=== PATIENT | female | born 1970 | race Two or more races ===

== ENCOUNTER 2018-08-27 07:48 | Outpatient (CLI) | payer OTHER | END 2018-08-27 08:08 | disposition home or self-care (01) | LOC: MRI 07:48 | DX: R94.5 Abnormal results of liver function studies (principal) | CPT/HCPCS: 74181 ==

== ENCOUNTER 2019-01-10 07:35 | Inpatient (IN) | payer OTHER ==
[~2019-01-10 07:35] MED LIST: CLONAZEPAM1 M1 PO; DYMISTA; TRAZODONE HCL50 MG PO; ZANTAC300 MG PO; ZOLOFT50 MG PO
[2019-01-11] MEDS ORDERED: DYMISTA NASAL S23 GM NASAL (08:29)
[2019-01-14] MEDS ORDERED: KETO10TA2 PO (08:59)
[2019-01-14] MEDS ORDERED: PHENERGAN25 MG PO (08:59)
== END 2019-01-14 10:59 | DRG 743 ==
LOC: CIR.AMB 07:35 → OB/GYN 14:38 → O/R 14:38 → OB/GYN 15:30 → CIR.AMB 18:15 → OB/GYN 01-14 10:59
PROVIDERS: ADMIT Obstetrics & Gynecology
PROC: 0TJB8ZZ Inspection of Bladder, Via Natural or Artificial Opening Endoscopic (ICD-10-PCS; 2019-01-10)
PROC: 0UT90ZZ Resection of Uterus, Open Approach (ICD-10-PCS; principal; 2019-01-10 18:15)
DX: D25.1 Intramural leiomyoma of uterus (principal); D25.0 Submucous leiomyoma of uterus; N84.1 Polyp of cervix uteri; N81.11 Cystocele, midline

== ENCOUNTER 2022-08-25 13:12 | Outpatient (CLI) | payer OTHER ==
[~2022-08-25 13:12] MED LIST changes: +DYMISTA NASAL S23 GM NASAL; +KETO10TA2 PO; +PHENERGAN25 MG PO
== END 2022-08-25 14:10 | disposition home or self-care (01) ==
LOC: SONOGRAMA 13:12
PROVIDERS: ATTEND Radiology Diagnostic Radiology
DX: R22.32 Localized swelling, mass and lump, left upper limb (principal)

== ENCOUNTER 2022-09-13 12:56 | Outpatient (CLI) | payer OTHER | END 2022-09-13 13:00 | disposition home or self-care (01) | LOC: MRI 12:56 | PROVIDERS: ATTEND General Practice | DX: S56.002A Unspecified injury of flexor muscle, fascia and tendon of left thumb at forearm level, initial encounter (principal) | CPT/HCPCS: 73218 ==

== ENCOUNTER 2024-09-30 08:45 | Outpatient (CLI) | payer OTHER | END 2024-09-30 10:53 | disposition home or self-care (01) | LOC: MRI 08:45 | PROVIDERS: ATTEND General Practice | DX: R16.0 Hepatomegaly, not elsewhere classified (principal); M54.50 Low back pain, unspecified | CPT/HCPCS: 72148 ==